=== PATIENT | female | born 2000 ===

== ENCOUNTER 2018-10-26 17:40 | Emergency (ER) ==
[2018-10-26 18:59] LABS: #Eosinphils 0.1 thou/uL (0.0-0.7); #Lymphocytes 1.9 thou/uL (1.20-3.40); #Monocytes 0.6 thou/uL (0.11-0.59); #Neutrophils 8.7 thou/uL (1.40-6.50); %Basophils 0.4 % (0.0-1.0); %Eosinophils 1.3 % (0.0-10.0); %Lymphocytes 16.8 % (28.0-48.0); %Monocytes 5.4 % (0.0-4.0); %Neutrophils 76.1 % (31.0-61.0); Mean Corpuscular HGB CONC 34.7 g/dL (32.0-36.0); Mean Corpuscular Volume 83.5 fL (78.0-98.0); Mean Platelet Volume 7.8 fL (7.4-10.4); Platelet Count 242 thou/uL (130-400); RBC Distribution Width 11.4 % (11.5-14.5); Red Blood Cell (RBC) Count 4.85 mill/uL (4.00-5.20); White Blood Cell (WBC) Count 11.4 thou/uL (4.8-10.8)
[2018-10-26 19:25] LABS: ALT (SGPT) 16 U/L (8-55); AST (SGOT) 22 U/L (5-34); Albumin 4.7 g/dL (3.5-5.0); Alkaline Phosphatase 72 U/L (40-150); Anion Gap 12 mmol/L (10-20); BUN (Urea Nitrogen) 13 mg/dL (7.0-18.7); Calc. Creatinine Clearance 0 mL/min (70-130); Calcium 9.9 mg/dL (7.8-10.44); Carbon Dioxide 25 mmol/L (22-29); Chloride 106 mmol/L (98-107); Estimated GFR-MDRD 88; Globulin 3.3 g/dL (2.4-3.5); Glucose 69 mg/dL (70-105); Potassium 3.7 mmol/L (3.5-5.1); Sodium 139 mmol/L (136-145)
[2018-10-26 19:39] LABS: Pregnancy Test - Urine (BHCG) Negative (Negative)
[2018-10-26 19:40] LABS: Pregu Control Background? CLEAR/WHITE (CLR/WHITE); Pregu Control Bar Appear? YES (CONTROL BAR); Specific Gravity 1.022 (1.002-1.036)
[2018-10-26 19:48] LABS: Amphetamine Detected (NotDetected); Barbiturates Screen Not Detected (NotDetected); Benzodiazepine Screen Not Detected (NotDetected); Cocaine Metabolite Screen Not Detected (NotDetected); Medtox Reader # READER 1; Methadone Not Detected (NotDetected); Methamphetamine Detected (NotDetected); Opiate Screen Not Detected (NotDetected); Oxycodone Screen Not Detected (NotDetected); Phencyclidine (PCP) Not Detected (NotDetected); THC/Cannabinoid Screen Not Detected (NotDetected); Tricyclic Screen Not Detected (NotDetected)
--- NOTE | 2018-10-26 19:48 | RAD ---
PORTABLE UPRIGHT FRONTAL CHEST RADIOGRAPH: Date: 10-26-18 Comparison: None. History: Fall, trauma, pain. FINDINGS: No pneumothorax, pleural fluid, focal consolidation or alveolar edema. Heart and mediastinal contours are unremarkable. IMPRESSION: No acute findings. POS: [facility]
[2018-10-26 19:49] LABS: Medtox Control Line Valid? VALID (VALID)
--- NOTE | 2018-10-26 19:54 | CT ---
HEAD CT WITHOUT CONTRAST: Date: 10-26-18 Comparison: None. History: Fall, possible seizure. Technique: Serial axial CT imaging is obtained at 5 mm intervals from vertex through skull base witho ut contrast. FINDINGS: The visualized paranasal sinuses/mastoid air cells are well aerated. There is no displaced calvarial fracture seen. No intracranial hemorrhage, midline shift, mass effect, or ventricular enlargement. IMPRESSION: No acute findings. If there is clinical concern for a seizure focus, a follow up brain MRI is advised . POS: [facility]
--- NOTE | 2018-10-26 19:56 | CT ---
CERVICAL SPINE CT WITHOUT CONTRAST: 10/26/18 COMPARISON: None. HISTORY: Fall, trauma, possible seizure. TECHNIQUE: Axial CT imaging at 2.5 mm intervals from skull base through lung apices with coronal and sagittal re formatted imaging. FINDINGS: The imaged lung apices unremarkable. The occipital condyles, the dens, the C1-2 articulation, the craniocervical junction, and the cervico thoracic junction appear unremarkable. No prevertebral soft tissue swelling. Cervical vertebral body height and alignment appears within normal limits. No acute fracture or evidence of dislocation. IMPRESSION: No acute osseous abnormality. POS: [facility]
--- NOTE | 2018-10-26 19:59 | CT ---
LUMBAR SPINE CT WITHOUT CONTRAST: 10/26/18 COMPARISON: None. HISTORY: Injury, trauma, pain. TECHNIQUE: Axial CT imaging at 2.5 mm intervals through the lumbar spine with coronal and sagittal reformatted i maging. FINDINGS: Evaluation for central canal and/or neural foraminal stenosis is limited on routine CT. Five lumbar type vertebral bodies are present. Lumbar vertebral body height and alignment is normal. The imaged retroperitoneal structures demonstrate punctate bilateral renal calculi within the lower p ole of each kidney. No widening of the sacroiliac joints. There is a benign bone island within the right sacral ala. There is no osseous cause of significant central canal or neural foraminal stenosis within the lumbar spine. No lumbar spine fracture. No evidence for dislocation. IMPRESSION: No acute osseous abnormality. POS: [facility]
--- NOTE | 2018-10-26 20:01 | CT ---
CT OF THE THORACIC SPINE 10/26/18 COMPARISON: None. HISTORY: Injury, trauma, pain. TECHNIQUE: Axial CT imaging at 3.75 mm intervals through the thoracic spine with coronal and sagittal reformatte d imaging. FINDINGS: Evaluation for central canal and/or neural foraminal stenosis is limited on routine CT. The imaged christian ng parenchyma appears unremarkable. Thoracic vertebral body height and alignment is normal. No evidence for fracture. IMPRESSION: Unremarkable thoracic spine CT. POS: [facility]
--- NOTE | 2018-10-26 20:05 | CT ---
CT OF THE FACIAL BONES 10/26/18 COMPARISON: None. HISTORY: Injury, trauma, pain. TECHNIQUE: Axial CT imaging at 2.5 mm intervals through the face with coronal and sagittal reformatted imaging. FINDINGS: The frontal sinuses, ethmoid air cells, maxillary sinuses, and sphenoid sinuses are unremarkable. Briana ged mastoid air cells are unremarkable. The nasal bones, zygomatic arches, and pterygoid plates are intact. Temporomandibular joints appear unremarkable. The mandible is intact as is the maxilla. No evidence f or maxillofacial fracture. The orbital floor and the medial orbital wall appears intact bilaterally. IMPRESSION: No acute osseous abnormality. POS: [facility]
== END 2018-10-26 20:55 | disposition home or self-care (01) ==
LOC: ERS 17:40
DX: R55 Syncope and collapse (principal); F41.9 Anxiety disorder, unspecified; F32.9 Major depressive disorder, single episode, unspecified; Z85.43 Personal history of malignant neoplasm of ovary; Z87.891 Personal history of nicotine dependence; W19.XXXA Unspecified fall, initial encounter
CPT/HCPCS: 51701; 70450; 70486; 71045; 72125; 72128; 72131; 80053; 80306; 81025; 84146; 85025; 93005; A4353